=== PATIENT | male | born 1960 | race Hispanic/Latino ===

== ENCOUNTER 2025-02-06 08:48 | Outpatient (CLI) | payer MEDICARE, BC ==
[2025-02-06 09:45] LABS: Estimated GFR - POC 95.0
== END 2025-02-06 08:49 | disposition home or self-care (01) ==
LOC: SCSMRI 08:48
PROVIDERS: ATTEND Family Medicine
DX: R97.20 Elevated prostate specific antigen [PSA] (principal)
CPT/HCPCS: 36415; 72197; 82565